=== PATIENT | female | born 1990 | race African-American/Black ===

== ENCOUNTER 2017-05-31 03:15 | Emergency (ER) | payer MEDICAID ==
[~2017-05-31] VITALS: Ht 152.4 cm; Wt 63.5 kg
[2017-05-31 03:59] LABS: APPEARANCE,URINE CLEAR; KETONES,URINE NEGATIVE (NEGATIVE); LEUKOCYTE ESTERASE ,URINE 2+ (NEGATIVE); NITRITE,URINE NEGATIVE (NEGATIVE); PH,URINE 5 (4.5-8.0); PROTEIN,URINE 1+ (NEGATIVE); UROBILINOGEN,URINE NORMAL MG/DL (0.0-1.0)
[2017-05-31 04:01] VITALS: BP 100/65
--- NOTE | 2017-05-31 04:24 | Emergency Room Report ---
History of Present Illness General Chief Complaint: Female Urogenital Problems Source: Patient Present Illness HPI Is a 26-year-old female with no past medical history. She presents with chief complaint of vaginal spotting. She had her period about 2 weeks ago. It was normal for her. Tonight she noticed some spotting. Not . No dysuria or frequency. Did have some itchiness prior to her menstrual flow. No fever or chills. No discharge. No history of STDs. Allergies: Coded Allergies: No Known Allergies (Unverified , 05/31/17) Patient History Past Medical History: see triage record, old chart reviewed Past Surgical History: none Pertinent Family History: none Social History: Denies: smoking Last Menstrual Period: MAY 25 Now: No Immunizations: other Reviewed Nursing Documentation: PMH: Agreed, PSxH: Agreed Nursing Documentation-PMH Past Medical History: No Stated History Review of Systems Eye: Denies: eye pain, blurred vision ENT: Denies: ear pain, nose congestion, throat swelling Respiratory: Denies: cough, shortness of breath Cardiovascular: Denies: chest pain, palpitations Gastrointestinal: Denies: abdominal pain, diarrhea, nausea, vomiting Genitourinary: Reports: vag bleed/dc Musculoskeletal: Denies: back pain, joint pain Skin: Denies: rash Neurological: Denies: headache, numbness Endocrine: Denies: increased thirst, increased urine Hematologic/Lymphatic: Denies: easy bruising All Other Systems: negative except mentioned in HPI Physical Exam Vital Signs Date Time Temp Pulse Resp B/P (MAP) Pulse Ox O2 Delivery O2 Flow Rate FiO2 05/31/17 03:19 97.9 82 18 100/65 98 Room Air vitals normal Sp02 EP Interpretation: reviewed, normal General Appearance: well appearing, no apparent distress, alert Head: normocephalic, atraumatic Eyes: bilateral eye PERRL, bilateral eye EOMI ENT: hearing grossly normal, normal pharynx Neck: full range of motion, supple, no meningismus Respiratory: chest non-tender, lungs clear, normal breath sounds Cardiovascular #1: regular rate, rhythm, no murmur Gastrointestinal: normal bowel sounds, non tender, no mass, no organomegaly, no bruit, non-distended Genitourinary: other - Pelvic exam done with Lizz, her RN, tap and die maker technician. Normal external exam. Internal exam shows scant discharge. No cervical motion tenderness. No adnexal mass. Musculoskeletal: back normal, gait/station normal, normal range of motion Neurologic: alert, oriented x3 Psychiatric: mood/affect normal Skin: warm/dry Medical Decision Making Diagnostic Impression: Primary Impression: Dysfunctional uterine bleeding Additional Impressions: Bacterial vaginosis Trichomonas vaginitis ER Course patient presents with vaginal bleeding. Is not . No evidence of ectopic. Patient does not want to stay for results. We'll discharge home. she wants us to call her with the results. Patient wet mount came back positive for clue cells and Trichomonas. I had the nurse call her back for her antibiotics prescription. Patient was too impatient to wait 2-3 minutes for the results. Last Vital Signs Date Time Temp Pulse Resp B/P (MAP) Pulse Ox O2 Delivery O2 Flow Rate FiO2 05/31/17 04:01 97.9 18 100/65 98 Room Air 05/31/17 03:19 82 Status: unchanged Disposition: HOME, SELF-CARE Condition: Stable Scripts Metronidazole* (FLAGYL*) 500 Mg Tablet 2000 MG ORAL ONCE, #4 TAB Prov: NIGHAT HARDIN M.D. 05/31/17 Referrals: NOT CHOSEN [facility]/,REFERRING (PCP) Additional Instructions: followup with your DrJacoby in 7 days. Return if symptom worsen. NIGHAT HARDIN M.D. May 31, 2017 04:24
[2017-05-31 04:30] VITALS: BP 100/65
[2017-05-31 04:36] LABS: RBC,URINE 0 /HPF (0 - 2); SQUAMOUS EPITHELIAL CELL,UR MODERATE /LPF (NONE/OCC)
[2017-05-31] MEDS ORDERED: METRONIDAZOLE500 MG ORAL (04:54)
== END 2017-05-31 04:30 | disposition home or self-care (01) ==
LOC: EMR 03:35
DX: N93.9 Abnormal uterine and vaginal bleeding, unspecified (principal); N76.0 Acute vaginitis; A59.01 Trichomonal vulvovaginitis
CPT/HCPCS: 81003; 81025; 87210; 99283